=== PATIENT | female | born 1995 | race Two or more races ===

== ENCOUNTER 2019-06-11 07:56 | Inpatient (IN) | payer MEDICAID ==
[~2019-06-11] VITALS: Ht 154.9 cm; Wt 64.7 kg
--- NOTE | 2019-06-11 08:21 | NUR ---
Pt reports burning w/ urination & right sided flank pain x 3 weeks. Pt reports that she is 20 weeks . hr 125, temp of 100 Clean catch ua obtained-sent for analysis
[2019-06-11] MEDS ORDERED: ONDANSETRON ODT 4 MG ONE (08:27)
[2019-06-11] MEDS ORDERED: ACETAMINOPHEN 500 MG TABLET ONE (08:28)
[2019-06-11 08:29] LABS: CULTURE INDICATED? YES; MICROSCOPIC INDICATED
--- NOTE | 2019-06-11 08:29 | NUR ---
LAB AT BEDSIDE FOR LABS INCLUDING BLOOD CULTURES AND LACTATE MEDICATED PER EMAR PLACED ON BEATER MACHINE OPERATOR UPDATED ON ESTIMATED POC
[2019-06-11] MEDS ORDERED: ACETAMINOPHEN 500 MG TABLET PO ONE (08:30)
[2019-06-11] MEDS ORDERED: ONDANSETRON 2MG/ML, 2ML ONE ×2 (08:39→16:22)
[2019-06-11 08:40] LABS: MEAN CORPUSCULAR HGB CONC 33.7 g/dL (32.4-35.8); MEAN PLATELET VOLUME 7.8 fL (7.4-10.4); PLATELET COUNT 238 x10^3/uL (130-400); RED CELL DISTRIBUTION WIDTH 13.1 % (9.6-15.2)
--- NOTE | 2019-06-11 08:50 | NUR ---
Left arm piv placed from which 2nd set of blood cultures drawn. Blood culture band placed
[2019-06-11 08:51] LABS: ALANINE AMINOTRANSFERASE 12 U/L (12-78); ALBUMIN 2.8 g/dL (3.4-5.0); ANION GAP 11 mmol/L (5-15); CALCIUM 8.3 mg/dL (8.5-10.1); CHLORIDE 105 mmol/L (98-107)
[2019-06-11 08:54] LABS: ALKALINE PHOSPHATASE 74 U/L (45-117); BILIRUBIN,TOTAL 0.4 mg/dL (0.2-1.0); CREATININE 0.48 mg/dL (0.55-1.02); TOTAL PROTEIN 6.9 g/dL (6.4-8.2)
[2019-06-11 08:55] LABS: BASOPHILS # (AUTO) 0.01 x10^3/uL (0-0.1); BASOPHILS % (AUTO) 0 % (0-1); EOSINOPHILS # (AUTO) 0.02 x10^3/uL (0-0.4); EOSINOPHILS % (AUTO) 0 % (1-7); LYMPHOCYTES # (AUTO) 0.95 x10^3/uL (1-3.4); LYMPHOCYTES % (AUTO) 7 % (22-44); MD SCAN; MONOCYTES % (AUTO) 6 % (2-9); NEUTROPHILS # (AUTO) 12.87 x10^3/uL (1.8-6.8); NEUTROPHILS % (AUTO) 87 % (42-75)
[2019-06-11] MEDS ORDERED: SODIUM CHLORIDE 0.9% 1,000ML IVBOLUS ONE ×2 (09:00→10:00)
[2019-06-11] MEDS ORDERED: ONDANSETRON 2MG/ML, 2ML IVPush ONE (09:00)
--- NOTE | 2019-06-11 09:25 | NUR ---
L&D RN AT BEDSIDE-T'S IN THE 170'S
[2019-06-11] MEDS ORDERED: CEFTRIAXONE PMX 1GM/50ML 50 ML ONE (09:28)
[2019-06-11] MEDS ORDERED: METOCLOPRAMIDE 5 MG/ML, 2ML ONE (09:28)
[2019-06-11] MEDS ORDERED: SODIUM CHLORIDE FLUSH 10ML SYR IVF ONE (09:30)
--- NOTE | 2019-06-11 09:42 | NUR ---
ETHANT WITH CONTINUED HEADACHE-PROVIDER WOULD LIKE REGLAN. ASSISTANT COOK QUESTIONED-PROVIDER ASSURED SAFE IN ABX AND REGLAN ADMINISTERED PER EMAR REPEAT B/P 99/39-PROVIDER AWARE-ASKED FOR 2ND NS LITER
[2019-06-11] MEDS ORDERED: CEFTRIAXONE PMX 1GM/50ML 50 ML IV ONE (10:00)
[2019-06-11] MEDS ORDERED: METOCLOPRAMIDE 5 MG/ML, 2ML IVPush ONE (10:00)
[2019-06-11] MEDS ORDERED: PREN1TAB28 PO (10:04)
--- NOTE | 2019-06-11 10:10 | NUR ---
ABX COMPLETE, 2ND LITER STARTED PATIENT NOW TO ADMITTED FOR IV ABX FOR PYLO TO L&D
[2019-06-11 11:00] VITALS: BP 87/48
[2019-06-11] MEDS ORDERED: ONDANSETRON 4 MG TABLET PO PRN (12:30)
[2019-06-11] MEDS ORDERED: OXYcodone/APAP 5/325MG TABLET ONE ×4 (12:34→21:24)
[2019-06-11] MEDS: OXYcodone/APAP 5/325MG TABLET PO PRN ×4 (12:39→21:26)
[2019-06-11] MEDS ORDERED: LACTATED RINGERS 1,000 ML IVBOLUS ONE (13:30)
[2019-06-11] MEDS: LACTATED RINGERS 1,000 ML IV SCH (14:30)
[2019-06-11 15:57] LABS: AMPHETAMINE SCREEN, URINE Negative (Negative); BARBITURATE SCREEN, URINE Negative (Negative); BENZODIAZEPINE SCREEN, URINE Negative (Negative); CANNABINOID SCREEN, URINE Positive (Negative); COCAINE SCREEN, URINE Negative (Negative); METHADONE SCREEN, URINE Negative (Negative); OPIATE SCREEN, URINE Negative (Negative)
[2019-06-11] MEDS ORDERED: ACETAMINOPHEN 325 MG TABLET ONE (16:19)
[2019-06-11] MEDS: ACETAMINOPHEN 325 MG TABLET PO PRN (16:30)
[2019-06-11] MEDS: ONDANSETRON 2MG/ML, 2ML IVPush PRN (16:33)
[2019-06-11] MEDS ORDERED: OXYcodone IR 5MG TABLET ONE (18:50)
[2019-06-11] MEDS: OXYcodone IR 5MG TABLET PO PRN (18:55)
[2019-06-11 19:55] VITALS: BP 107/57
[2019-06-12] MEDS ORDERED: OXYcodone/APAP 5/325MG TABLET ONE ×2 (03:31→09:35)
[2019-06-12] MEDS ORDERED: ONDANSETRON 2MG/ML, 2ML ONE ×2 (03:34→15:37)
[2019-06-12] MEDS: ONDANSETRON 2MG/ML, 2ML IVPush PRN ×2 (03:40→15:39)
[2019-06-12] MEDS: OXYcodone/APAP 5/325MG TABLET PO PRN ×2 (04:28→10:08)
[2019-06-12] MEDS ORDERED: ACETAMINOPHEN 325 MG TABLET ONE ×3 (05:27→19:22)
[2019-06-12] MEDS: ACETAMINOPHEN 325 MG TABLET PO PRN ×3 (05:28→19:25)
[2019-06-12] MEDS ORDERED: OXYcodone IR 5MG TABLET ONE ×4 (06:43→21:53)
[2019-06-12] MEDS: OXYcodone IR 5MG TABLET PO PRN ×4 (06:44→21:55)
[2019-06-12 07:29] VITALS: BP 98/52
[2019-06-12] MEDS: CEFTRIAXONE PMX 1GM/50ML 50 ML IV SCH (09:29)
[2019-06-12] MEDS ORDERED: DOCUSATE 100 MG CAPSULE PO PRN (10:00)
[2019-06-12] MEDS ORDERED: DOCUSATE 100 MG CAPSULE ONE (10:04)
[2019-06-12] MEDS ORDERED: PRENATAL VIT/IRON/FA 1 EACH TABLET ONE (10:04)
[2019-06-12] MEDS ORDERED: LACTATED RINGERS 1,000 ML IVBOLUS ONE (10:30)
[2019-06-12 10:44] LABS: MD YES
[2019-06-12 11:03] LABS: MEAN CORPUSCULAR HEMOGLOBIN 28.7 pg (27.0-34.8); MEAN CORPUSCULAR HGB CONC 33.1 g/dL (32.4-35.8); MEAN CORPUSCULAR VOLUME 86.8 fL (80-100); MEAN PLATELET VOLUME 8.3 fL (7.4-10.4); PLATELET COUNT 199 x10^3/uL (130-400); RED BLOOD COUNT 3.38 x10^6/uL (3.82-5.3); RED CELL DISTRIBUTION WIDTH 13.1 % (9.6-15.2)
[2019-06-12 11:08] LABS: BAND#(MANUAL) 1.51 x10^3/uL; BANDS%(MANUAL) 11 % (0-7); LYMPH#(MANUAL) 0.55 x10^3/uL (1-3.4); LYMPHS% (MANUAL) 4 % (22-44); MONOS#(MANUAL) 1.51 x10^3/uL (0.3-2.7); MONOS% (MANUAL) 11 % (2-9); SEG#(MANUAL) 10.14 x10^3/uL (1.8-6.8); SEGS% (MANUAL) 74 % (42-75)
[2019-06-12 11:09] LABS: <PLATELET ESTIMATE> ADEQUATE; <PLT MORPHOLOGY> NORMAL PLT MORPH; <RBC MORPHOLOGY> NORMAL
[2019-06-12] MEDS: LACTATED RINGERS 1,000 ML IV SCH ×2 (11:24→20:48)
[2019-06-12] MEDS ORDERED: OXYcodone/APAP 10/325MG TABLET ONE (14:18)
[2019-06-12 19:25] VITALS: BP 95/45
[2019-06-12] MEDS ORDERED: D5%-LACTATED RINGERS 1,000 ML IV SCH (21:00)
[2019-06-13] MEDS ORDERED: ACETAMINOPHEN 325 MG TABLET ONE (03:05)
[2019-06-13] MEDS: ACETAMINOPHEN 325 MG TABLET PO PRN (03:07)
[2019-06-13] MEDS ORDERED: OXYcodone IR 5MG TABLET ONE ×3 (04:53→15:27)
[2019-06-13] MEDS: OXYcodone IR 5MG TABLET PO PRN ×3 (04:56→15:28)
[2019-06-13 07:35] VITALS: BP 94/50
[2019-06-13] MEDS ORDERED: PRENATAL VIT/IRON/FA 1 EACH TABLET PO SCH (09:00)
[2019-06-13] MEDS: CEFTRIAXONE PMX 1GM/50ML 50 ML IV SCH (09:14)
== END 2019-06-13 17:59 | disposition home or self-care (01) | DRG 831 ==
LOC: ED 08:12 → EDIP 10:06 → LDIP 10:42
PROVIDERS: ADMIT Obstetrics & Gynecology Maternal & Fetal Medicine; ATTEND Obstetrics & Gynecology
DX: O23.02 Infections of kidney in pregnancy, second trimester (principal); A41.9 Sepsis, unspecified organism; O98.812 Other maternal infectious and parasitic diseases complicating pregnancy, second trimester; B96.1 Klebsiella pneumoniae [K. pneumoniae] as the cause of diseases classified elsewhere; Z3A.19 19 weeks gestation of pregnancy
CPT/HCPCS: 36415; 96361; 96365; 96375; 99291; J7121; 80053; 80307; 81001; 83605; 85025; 87040; 87077; 87086; 87186; G0378; J0696; J2405; J2765; J7030; J7120